=== PATIENT | male | born 1965 | race Caucasian/White ===

== ENCOUNTER → 2017-09-30 | Outpatient (CLI) | payer BC ==
--- NOTE | 2017-10-01 08:13 | US ---
EXAMINATION TYPE: US kidneys/renal and bladder DATE OF EXAM: 09/30/2017 COMPARISON: NONE CLINICAL HISTORY: N20.0 CALCULUS OF KIDNEY. Left flank pain EXAM MEASUREMENTS: Right Kidney: 12.5 x 6.7 x 6.6 cm Left Kidney: 11.1 x 6.8 x 4.5 cm Right Kidney: multiple tiny echogenic foci that may represent small stones, largest = 4mm at inferior pole Left Kidney: No hydronephrosis or masses seen Bladder: wnl Bilateral Jets seen: yes There is no evidence for hydronephrosis at this point in time. No masses are identified. The urinary bladder is anechoic. Bilateral ureteral jets are seen. IMPRESSION: 1. No evidence of hydronephrosis. 2. Punctate echogenic right renal foci, the largest measuring 4 mm suspected to represent small nonsh adowing nephroliths.
== END ==
LOC: RADUSWWP 16:05
PROVIDERS: ATTEND Family Medicine
DX: R93.421 Abnormal radiologic findings on diagnostic imaging of right kidney (principal)
CPT/HCPCS: 76770

== ENCOUNTER → 2017-10-01 | Outpatient (CLI) | payer BC ==
--- NOTE | 2017-10-01 13:22 | XR ---
EXAMINATION TYPE: XR KUB DATE OF EXAM: 10/01/2017 11:50 AM CLINICAL HISTORY: Right-sided nephrolithiasis. TECHNIQUE: Single supine KUB image of the abdomen is obtained. COMPARISON: None. FINDINGS: Punctate right renal calculus may be within the hepatic flexure or could represent a small renal calculus. Multiple phleboliths are noted within the low pelvis. Scattered gas is seen in non-di stended small bowel loops. Gas and fecal material is seen in non-distended colon. The lung bases are clear and the osseous structures are intact. IMPRESSION: Punctate right calculus could represent colonic bowel contents due to overlying bowel or a punctate right renal calculus.
== END | disposition home or self-care (01) ==
LOC: RADXRMAIN 11:35
PROVIDERS: ATTEND Midwife
DX: N20.0 Calculus of kidney (principal)
CPT/HCPCS: 74018

== ENCOUNTER → 2022-07-29 | Outpatient (CLI) | payer BC ==
--- NOTE | 2022-07-29 16:05 | MR ---
EXAMINATION TYPE: MR lumbar spine wo con DATE OF EXAM: 07/29/2022 COMPARISON: None HISTORY: Low back pain that radiates into right buttocks TECHNIQUE: Multiplanar, multisequence images of the lumbar spine were acquired without IV contrast. FINDINGS: Lumbar segments are intact. No paraspinal masses are identified. Conus medullaris has a normal appe arance. L1-L2: No herniation, protrusion or disc bulging. No canal stenosis is present. Foramina are patent bilaterally. L2-L3: No herniation, protrusion or disc bulging. No canal stenosis is present. Foramina are patent bilaterally. L3-L4: No herniation, protrusion or disc bulging. No canal stenosis is present. Foramina are patent bilaterally. L4-L5: Broad-based disc bulge with minimal central canal stenosis. Bilateral facet arthropathy. Mild left neural foraminal stenosis. The right neural foramen is patent. L5-S1: Right central disc protrusion extending into the subacromial foraminal zone with caudal migrat ion approximately 1 cm. There is abutment of the exiting right L5 nerve root with mild central canal stenosis. The neural foramen are patent bilaterally. 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 This abuts the exiting right L5 nerve root and causes mild central canal s tenosis.
== END | disposition home or self-care (01) ==
LOC: RADMRIMAIN 10:31
PROVIDERS: ATTEND Family Medicine
DX: M51.36 Other intervertebral disc degeneration, lumbar region (principal); M51.26 Other intervertebral disc displacement, lumbar region; M48.061 Spinal stenosis, lumbar region without neurogenic claudication; M54.41 Lumbago with sciatica, right side
CPT/HCPCS: 72148

== ENCOUNTER 2023-04-01 09:16 | Day surgery (SDC) | payer BC ==
[2023-03-31 09:16] VITALS: BMI 26.1
[2023-04-01 10:41] VITALS: TEMP 97.6
[2023-04-01 10:43] LABS: Glucose,Whole Blood 103 mg/dL (70-110)
[2023-04-01] MEDS: LACTATED RINGERS 1,000 ML IV SCH (10:43)
[2023-04-01] MEDS ORDERED: PROPOFOL 10 MG/ML 20 ML VIAL IV ONE (11:04)
[2023-04-01] MEDS ORDERED: LIDOCAINE 1% INJ 10MG/ML (20 ML MDV) ONE (11:04)
--- NOTE | 2023-04-01 11:19 | P.PCN ---
Date of Procedure: 04/01/23 Procedure(s) Performed: BRIEF HISTORY: Patient is a 57-year-old pleasant white male scheduled for an elective colonoscopy as a part of evaluation of intermittent rectal bleeding for the last 2 months duration PROCEDURE PERFORMED: Colonoscopy. PREOPERATIVE DIAGNOSIS: Rectal bleeding. IV sedation per Anesthesia. PROCEDURE: After informed consent was obtained, the patient, was brought into the endoscopy unit. IV sedation was administered by Anesthesia under continuous monitoring. Digital rectal examination was normal. Initially the Olympus CF-160 flexible video colonoscope was then inserted in the rectum, gradually advanced into the cecum without any difficulty. Careful examination was performed as the scope was gradually being withdrawn. Ileocecal valve and the appendiceal orifice were visualized and appeared normal. Prep was excellent. Mucosa of the cecum, ascending colon, transverse colon, descending colon, sigmoid colon, and rectum appeared normal. Retroflexion was performed in the rectum and a 2 internal hemorrhoids were seen. The patient tolerated the procedure well. IMPRESSION: Normal-appearing colon from rectum to cecum with no evidence of colorectal neoplasia . Grade 2 internal hemorrhoids. RECOMMENDATIONS: Findings of this examination were discussed with the patient well as his family. He was advised to have a repeat coloscopy in 10 years. In the meantime recommend a high-fiber diet and fiber supplements a regular basis and avoid straining and constipation..
[2023-04-01 12:15] VITALS: BP 114/51; PULSE 65; RESP 17
== END 2023-04-01 11:57 | disposition home or self-care (01) ==
LOC: ORWHC2ENDO 09:16
PROVIDERS: ATTEND Internal Medicine Gastroenterology
DX: K62.5 Hemorrhage of anus and rectum (principal); K64.1 Second degree hemorrhoids; I10 Essential (primary) hypertension; Z98.890 Other specified postprocedural states; Z90.89 Acquired absence of other organs; Z88.1 Allergy status to other antibiotic agents; Z79.899 Other long term (current) drug therapy
CPT/HCPCS: 45378; J2001; J2704